=== PATIENT | male | born 1965 | race Two or more races ===

== ENCOUNTER 2016-07-14 20:40 | Emergency (ER) | payer OTHER ==
[~2016-07-14 20:40] MED LIST: ATARAX PO; BACTROBAN15 GM TOP; ELIMITE60 G1 TP; FLEXERIL10 M1 PO; FLEXERIL10 MG PO; HEROIN; HYDROCODON-ACE1 EAC4 PO; HYDROCODON-ACE1 EAC9 PO; HYDROCODONE 10/325 PO; KEFLEX500 M1 PO; LORTAB ELIXIR15 ML PO; MEDROL DOSEPAK4 MG PO; NO MEDICATIONS; PHENERGAN PO; ULTRAM PO; VOLTAREN50 MG PO; ZOFRANODT SL
== END 2016-07-14 23:08 | disposition home or self-care (01) ==
LOC: SED 20:40
DX: F11.129 Opioid abuse with intoxication, unspecified (principal); F17.200 Nicotine dependence, unspecified, uncomplicated
CPT/HCPCS: 96374; 99283; J2310